=== PATIENT | male | born 1965 | race Caucasian/White ===

== ENCOUNTER 2016-10-28 03:02 | Emergency (ER) | payer BC, OTHER ==
--- NOTE | 2016-10-28 04:44 | DIAGNOSTIC IMAGING REPORT ---
PROCEDURE: XR LUMBAR SPINE 2 OR 3 VIEWS INDICATION: LOWER BACK PAIN TECHNIQUE: Three views. COMPARISON: Compared to CT abdomen and pelvis on 06/02/2015. 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 There are mild degenerative changes of the lower lumbar facet joints. The rest the osseous structures and joint spaces are normal. No evidence of an acute process or fracture. IMPRESSION: 1. Findings suggest bilateral spondylolysis defects L5 with grade 1 (3 mm) spondylolisthesis of L5 on S1. 2. Mild degenerative changes of the lumbar spine. 3. Findings discussed with Dr. Spivey.
--- NOTE | 2016-10-28 04:52 | ED CLINICAL REPORT ---
Clinical Report - Physicians/Mid Levels [facility] [address] [place] [address] 10/28/2016 3:02 Patient: KAL VERDIN Time Seen: 03:47 Oct 28 2016. Arrived- By private vehicle. Historian- patient. CPT: ER phys charges level 4 (#[id number]). HISTORY OF PRESENT ILLNESS Chief Complaint: FLANK PAIN. It is described as "pain" and it is described as located in the right flank. At its maximum, severity described as severe. When seen in the E.D., severity described as severe. Modifying factors- worsened by movement. Relieved by rest. (The patient indicates he crawled into bed and turned and heard a pop in his low back. This occurred at 1 AM this morning. Since then he's had severe pain in his right lower lumbar spine at about the L5 level. He has radicular pain around to the front.). Is still present. The patient has had nausea and vomiting. No loss of appetite. No recent travel. Similar symptoms previously: Milder. Recent medical care: Not recently seen/assessed. REVIEW OF SYSTEMS No constipation, black stools, hematemesis, difficulty with urination or pain with urination. No urinary frequency, fever, sore throat, chest pain or difficulty breathing. No cough, joint pain, skin rash or chills. The patient has had back pain. no paresthesia, paralysis, weakness ,or loss of bowel/bladder control. All systems otherwise negative, except as recorded above. PAST HISTORY Gout. Headache. Diabetes Mellitus. Hypertension. No history of peptic ulcer. No history of gallstones. Has not had urinary calculi. Medications: Insulin lantus 10 units hs. Lisinopril Oral 5 mg, at bedtime. Metformin HCl Oral 1000mg, 2x a day. Multivitamins Oral 1 pill, daily. Simvastatin Oral 20 mg, daily. TraMADol HCl Oral, , for headaches. Vicodin Oral. Aspirin 81 mg, daily. Avandia Oral 4 mg, 2x a day. Glipizide Oral 10 mg, 2x a day. Allergies: Dilaudid. SOCIAL HISTORY Never smoker. No alcohol use or drug use. ADDITIONAL NOTES The nursing notes have been reviewed. PHYSICAL EXAM Vital Signs: 10/28/2016 03:06 BP: 124/81. HR: 61. RR: 20. O2 saturation: 98%. Temp: 98 F. Pain level now: 10/10. Appearance: Alert. Appears to be in pain. Patient in moderate distress. Eyes: Eyes normal inspection. ENT: Pharynx normal. Neck: Normal inspection. CVS: Normal heart rate and rhythm. Heart sounds normal. Pulses normal. Respiratory: No respiratory distress. Breath sounds normal. Chest nontender. Abdomen: Soft and nontender. Back: (Soft tissue tenderness right , lower paraspina soft tissue. Decreased ROM due to pain.). Skin: Skin warm. Normal skin color. No rash. Extremities: Extremities exhibit normal ROM. No lower extremity edema. Neuro: Oriented X 3. No motor deficit. No sensory deficit. Reflexes normal. Reflex exam: right biceps 1+, left biceps 1+, right patellar 2+, left patellar 2+, right Achilles 0 and left Achilles 0. LABS, X-RAYS, AND EKG LS-Spine X-rays: (Pars defect with some spondylosis.). Views: AP, lateral and coned down view. Technique: good. The X-rays were independently viewed by me, interpreted by the radiologist and discussed with the radiologist. PROGRESS AND PROCEDURES Course of Care: Toradol 30 milligrams IV Ativan 1 mg IV Patient is stable. Symptoms much better. patient's pain is coming from lumbar strain and radiculopathy. He does not have a kidney stone. Patient/family counseled. Disposition: Discharged. Condition: stable and improved. CLINICAL IMPRESSION Acute lumbar strain. INSTRUCTIONS No strenuous activity. Do not work for three days until better. Drink plenty of fluids. Warnings: Further evaluation is necessary. SEDATIVE MEDICATION: You were given sedative medication during your visit. Do not drive or operate dangerous machinery. GENERAL WARNINGS: Return or contact your physician immediately if your condition worsens or changes unexpectedly, if not improving as expected, or if other problems arise. Your Current Medications: CONTINUE TAKING THE FOLLOWING MEDICATIONS: Aspirin : 81 mg daily. Avandia Oral : 4 mg 2x a day. Glipizide Oral : 10 mg 2x a day. Insulin lantus 10 units hs*. Lisinopril Oral : 5 mg at bedtime. Metformin HCl Oral : 1000mg 2x a day. Multivitamins Oral : 1 pill daily. Simvastatin Oral : 20 mg daily. TraMADol HCl Oral : for headaches. Vicodin Oral. Prescription Medications: Hydrocodone/APAP 5mg/325mg: take 1 to 2 orally every 6 hours as needed for pain. Dispense fifteen (15). No refills. Zofran (orally disintegrating tablets) 4 mg: take 1 orally every 6 hours as needed for nausea. Dispense ten (10). No refill. Substitution is permissible. Ibuprofen 600mg tablets: take 1 tablet orally every 8 hours as needed for pain. Dispense thirty (30). No refills. Flexeril 10 mg: Take 1 orally every 8 hours as needed for muscle spasm. Dispense twenty (20). No refills. Substitution is permissible. Follow-up: Follow up with your doctor in one week. Call for an appointment. Understanding of the discharge instructions verbalized by patient and family. Discharge instructions reviewed with and understanding was verbalized by supervisor payroll. (Electronically signed by Khoa Spivey MD 10/31/2016 0:11)
--- NOTE | 2016-10-28 04:52 | ED ORDER SUMMARY ---
..... Patient: KAL VERDIN OrderSheet [facility] VisitID: [id number] [place] [address] 51y, M Registration Date/Time: 10/28/2016 ORDER SHEET Weight: 113.3 kg (stated) Allergies: Dilaudid GENERAL ORDERS: Lumbar Spine 2 or 3V (when back pain better) Urgent (03:51 10/28/2016 Gisele BRAXTON) (Ack 4:08 Deboraha R.N.) (4:28 RFay) MEDICATION ORDERS: Toradol IM 60 mg (NOW) (03:51 10/28/2016 Gisele BRAXTON) (Ack 3:51 HSoule) (Cancelled: Other3:54 Gisele BRAXTON) Soma PO 350 mg (NOW) (03:51 10/28/2016 Gisele BRAXTON) (Ack 3:51 HSoule) (Cancelled: Other3:54 Gisele BRAXTON) IV FLUIDS: IV Saline Lock (03:19 10/28/2016 HSoule per protocol) (3:19 HSoule) Toradol IV 30 mg (NOW) (03:54 10/28/2016 Gisele BRAXTON) (Ack 3:55 HSoule) (4:03 HSoule) Ativan IV 1 mg (NOW) (03:54 10/28/2016 Gisele BRAXTON) (Ack 3:55 HSoule) (4:03 HSoule) ORDER SHEET NOTES: [Electronically signed by Kayce Zavala (05:08 10/28/2016)] [Electronically signed by Khoa Spivey MD (00:11 10/31/2016)] [Electronically locked/signed by Kayce Zavala (05:08 10/28/2016)]
--- NOTE | 2016-10-28 04:52 | ED ORDER SUMMARY ---
..... Patient: KAL VERDIN OrderSheet [facility] VisitID: [id number] [place] [address] 51y, M Registration Date/Time: 10/28/2016 ORDER SHEET Weight: 113.3 kg (stated) Allergies: Dilaudid GENERAL ORDERS: Lumbar Spine 2 or 3V (when back pain better) Urgent (03:51 10/28/2016 Gisele BRAXTON) (Ack 4:08 Deboraha R.N.) (4:28 RFay) MEDICATION ORDERS: Toradol IM 60 mg (NOW) (03:51 10/28/2016 Gisele BRAXTON) (Ack 3:51 HSoule) (Cancelled: Other3:54 Gisele BRAXTON) Soma PO 350 mg (NOW) (03:51 10/28/2016 Gisele BRAXTON) (Ack 3:51 HSoule) (Cancelled: Other3:54 Gisele BRAXTON) IV FLUIDS: IV Saline Lock (03:19 10/28/2016 HSoule per protocol) (3:19 HSoule) Toradol IV 30 mg (NOW) (03:54 10/28/2016 Gisele BRAXTON) (Ack 3:55 HSoule) (4:03 HSoule) Ativan IV 1 mg (NOW) (03:54 10/28/2016 Gisele BRAXTON) (Ack 3:55 HSoule) (4:03 HSoule) ORDER SHEET NOTES: [Electronically signed by Kayce Zavala (05:08 10/28/2016)] [Electronically signed by Khoa Spivey MD (00:11 10/31/2016)] [Electronically locked/signed by Kayce Zavala (05:08 10/28/2016)]
--- NOTE | 2016-10-28 04:52 | ED CLINICAL REPORT ---
Clinical Report - Physicians/Mid Levels [facility] [address] [place] [address] 10/28/2016 3:02 Patient: KAL VERDIN Time Seen: 03:47 Oct 28 2016. Arrived- By private vehicle. Historian- patient. CPT: ER phys charges level 4 (#[id number]). HISTORY OF PRESENT ILLNESS Chief Complaint: FLANK PAIN. It is described as "pain" and it is described as located in the right flank. At its maximum, severity described as severe. When seen in the E.D., severity described as severe. Modifying factors- worsened by movement. Relieved by rest. (The patient indicates he crawled into bed and turned and heard a pop in his low back. This occurred at 1 AM this morning. Since then he's had severe pain in his right lower lumbar spine at about the L5 level. He has radicular pain around to the front.). Is still present. The patient has had nausea and vomiting. No loss of appetite. No recent travel. Similar symptoms previously: Milder. Recent medical care: Not recently seen/assessed. REVIEW OF SYSTEMS No constipation, black stools, hematemesis, difficulty with urination or pain with urination. No urinary frequency, fever, sore throat, chest pain or difficulty breathing. No cough, joint pain, skin rash or chills. The patient has had back pain. no paresthesia, paralysis, weakness ,or loss of bowel/bladder control. All systems otherwise negative, except as recorded above. PAST HISTORY Gout. Headache. Diabetes Mellitus. Hypertension. No history of peptic ulcer. No history of gallstones. Has not had urinary calculi. Medications: Insulin lantus 10 units hs. Lisinopril Oral 5 mg, at bedtime. Metformin HCl Oral 1000mg, 2x a day. Multivitamins Oral 1 pill, daily. Simvastatin Oral 20 mg, daily. TraMADol HCl Oral, , for headaches. Vicodin Oral. Aspirin 81 mg, daily. Avandia Oral 4 mg, 2x a day. Glipizide Oral 10 mg, 2x a day. Allergies: Dilaudid. SOCIAL HISTORY Never smoker. No alcohol use or drug use. ADDITIONAL NOTES The nursing notes have been reviewed. PHYSICAL EXAM Vital Signs: 10/28/2016 03:06 BP: 124/81. HR: 61. RR: 20. O2 saturation: 98%. Temp: 98 F. Pain level now: 10/10. Appearance: Alert. Appears to be in pain. Patient in moderate distress. Eyes: Eyes normal inspection. ENT: Pharynx normal. Neck: Normal inspection. CVS: Normal heart rate and rhythm. Heart sounds normal. Pulses normal. Respiratory: No respiratory distress. Breath sounds normal. Chest nontender. Abdomen: Soft and nontender. Back: (Soft tissue tenderness right , lower paraspina soft tissue. Decreased ROM due to pain.). Skin: Skin warm. Normal skin color. No rash. Extremities: Extremities exhibit normal ROM. No lower extremity edema. Neuro: Oriented X 3. No motor deficit. No sensory deficit. Reflexes normal. Reflex exam: right biceps 1+, left biceps 1+, right patellar 2+, left patellar 2+, right Achilles 0 and left Achilles 0. LABS, X-RAYS, AND EKG LS-Spine X-rays: (Pars defect with some spondylosis.). Views: AP, lateral and coned down view. Technique: good. The X-rays were independently viewed by me, interpreted by the radiologist and discussed with the radiologist. PROGRESS AND PROCEDURES Course of Care: Toradol 30 milligrams IV Ativan 1 mg IV Patient is stable. Symptoms much better. patient's pain is coming from lumbar strain and radiculopathy. He does not have a kidney stone. Patient/family counseled. Disposition: Discharged. Condition: stable and improved. CLINICAL IMPRESSION Acute lumbar strain. INSTRUCTIONS No strenuous activity. Do not work for three days until better. Drink plenty of fluids. Warnings: Further evaluation is necessary. SEDATIVE MEDICATION: You were given sedative medication during your visit. Do not drive or operate dangerous machinery. GENERAL WARNINGS: Return or contact your physician immediately if your condition worsens or changes unexpectedly, if not improving as expected, or if other problems arise. Your Current Medications: CONTINUE TAKING THE FOLLOWING MEDICATIONS: Aspirin : 81 mg daily. Avandia Oral : 4 mg 2x a day. Glipizide Oral : 10 mg 2x a day. Insulin lantus 10 units hs*. Lisinopril Oral : 5 mg at bedtime. Metformin HCl Oral : 1000mg 2x a day. Multivitamins Oral : 1 pill daily. Simvastatin Oral : 20 mg daily. TraMADol HCl Oral : for headaches. Vicodin Oral. Prescription Medications: Hydrocodone/APAP 5mg/325mg: take 1 to 2 orally every 6 hours as needed for pain. Dispense fifteen (15). No refills. Zofran (orally disintegrating tablets) 4 mg: take 1 orally every 6 hours as needed for nausea. Dispense ten (10). No refill. Substitution is permissible. Ibuprofen 600mg tablets: take 1 tablet orally every 8 hours as needed for pain. Dispense thirty (30). No refills. Flexeril 10 mg: Take 1 orally every 8 hours as needed for muscle spasm. Dispense twenty (20). No refills. Substitution is permissible. Follow-up: Follow up with your doctor in one week. Call for an appointment. Understanding of the discharge instructions verbalized by patient and family. Discharge instructions reviewed with and understanding was verbalized by inspector insulation. (Electronically signed by Khoa Spivey MD 10/31/2016 0:11)
--- NOTE | 2016-10-28 04:52 | ED NURSING NOTES ---
Clinical Report - Nurses [facility] [address] [place] [address] 10/28/2016 3:02 Patient: KAL VERDIN TRIAGE Triage time 03:Oct 28 2016. Acuity: LEVEL 3. Chief Complaint: (Right flank and side pain). SEPSIS SCREEN: Sepsis Screen: negative. Negative (no infection suspected/documented). --03:10 Kayce Zavala 03:06 10/28/16. BP: 124/81. HR: 61. RR: 20. O2 saturation: 98% on room air. Temp: 98 F (oral). Pain level now: 07/09. --03:10 Kayce Zavala KITTY COMA SCORE: Kitty Coma Scale: 15- eyes open spontaneously (4); best verbal response- oriented x 4 (5); best motor response- obeys commands (6). --03:10 Kayce Zavala. Weight: 113.3 kg stated. Height/Length: 71 inches Per Patient. BMI: 34.9. --03:08 Kayce Zavala. Medications Aspirin 81 mg, daily. Avandia Oral 4 mg, 2x a day. Glipizide Oral 10 mg, 2x a day. --03:08 Kayce Zavala Insulin lantus 10 units hs. Lisinopril Oral 5 mg, at bedtime. Metformin HCl Oral 1000mg, 2x a day. Multivitamins Oral 1 pill, daily. Simvastatin Oral 20 mg, daily. TraMADol HCl Oral, , for headaches. Vicodin Oral. --03:08 Kayce Zavala. Medication/allergy information source: the patient. --03:10 Kayce Zavala. Allergies Dilaudid. --03:08 Kayce Zavala. History Arrived by private vehicle. Historian: patient. Accompanied by family. Primary physician (elbert). This started just prior to arrival. ( Patient states that he began having severe right flank and side pain. He reports vomiting. He reports a history of kidney stones.). PAST MEDICAL HX: Immunizations: up-to-date. SOCIAL HX: Never smoker. No alcohol use. No infectious disease exposure. ABUSE ASSESSMENT: No report of abuse. FALL RISK ASSESSMENT: Fall risk assessment completed. No fall risk identified. NUTRITIONAL RISK ASSESSMENT: The nutritional risk assessment revealed no deficiencies. FUNCTIONAL ASSESSMENT: Functional assessment: no impairments noted. LEARNING NEEDS ASSESSMENT: The learning needs assessment revealed no barriers. SKIN INTEGRITY ASSESSMENT: Skin integrity risk assessment completed. No skin integrity risk identified. --03:10 Kayce Zavala. PROBLEMS: Gout. Headache. Diabetes Mellitus. Hypertension. Immunizations. --03:09 Kayce Zavala. ADDITIONAL SURGERIES: Septoplasty. --03:09 Kayce Zavala. Interventions ID band on patient. To treatment room. --03:10 Kayce Zavala. PHYSICAL ASSESSMENT Ambulatory to room. GENERAL / NEURO / PSYCH: Alert. Oriented X 4. Appears in pain. HEENT: Mucous membranes are pink. RESPIRATORY: Respirations not labored. CVS: Normal sinus rhythm noted. GI / : Abdominal tenderness in the right lower quadrant. SKIN: Skin is warm and dry. --03:10 Kayce Zavala. NURSING PROGRESS NOTES Pulse oximeter and NIBP monitor placed on patient; monitor alarms on. Patient gowned. Reassurance given to the patient. Two patient identifiers checked. Call light placed in reach. Side rails up x 1. Bed placed in lowest position. Brakes of bed on. Patient ready for evaluation- chart flagged. --03:11 Kayce Zavala 03:19 10/28/2016 Site #1 started via IV in the right antecubital space with an 20g angiocath, with aseptic technique and good blood return; one attempt. Blood drawn: rainbow set. Labeled in the presence of the patient and sent to the lab. Saline lock flushed with 10 mL saline. --03:19 Kayce Zavala 03:58 10/28/2016 Toradol IVP 30 mg given over 1 minute(s) via site #1. Allergies verified and confirmed 5 rights. IV patency established. IV site checked: no pain, redness, or swelling. IV flushed thoroughly pre- and post-medication administration. IVP given by RN. --04:03 Kayce Zavala 04:03 10/28/2016 Ativan (LORazepam) IVP 1 mg given over 1 minute(s) via site #1. Allergies verified, confirmed 5 rights and sedative warning given to the patient and patient's family. IV patency established. IV site checked: no pain, redness, or swelling. IV flushed thoroughly pre- and post-medication administration. IVP given by RN. --04:03 Kayce Zavala 04:14 10/28/16. O2 saturation: 86% on room air. O2 started via nasal cannula at 2 liters/minute. Additional comments: Pt asleep, O2 dropped. Responded to 2 L NC. . --04:14 Baldo Álvarez R.N. Reassessment after medication administered. Overall patient status- he states feels better. --04:46 Kayce Zavala 04:46 10/28/16. BP: 125/62. HR: 75. RR: 17. O2 saturation: 97% on nasal cannula at 2 liters/minute. Pain level now: 0/10. --04:46 Kayce Zavala. DISPOSITION / DISCHARGE Condition at departure: stable. No learning barriers present. Discharge instructions provided and reviewed with the patient and family. Reviewed warnings (Do not drive on seditive medications). Reviewed medication(s) side effects, precautions, dosing and course information. Patient verbalized understanding. Written instructions provided in Sudanese. ( Follow up with PCP in one week. Rest, limit activity and allow body time to heal. Increase fluids.). The patient was discharged by the physician. He was discharged home and accompanied by family. He left the Emergency Department ambulatory and via private vehicle. Family member driving. --05:07 Kayce Zavala 05:05 10/28/16. BP: 125/62. HR: 76. RR: 18. O2 saturation: 98% on room air. Temp: 98.7 F (oral). Pain level now: 0/10. --05:07 Kayce Zavala 05:02 10/28/2016 Site #1 removed upon discharge. Catheter intact. Bandaid applied. --05:07 Kayce Zavala. Locked/Released at 10/28/2016 5:08 by Kayce Zavala,
--- NOTE | 2016-10-31 00:12 | ED MAR SUMMARY ---
..... Medication Administration Record Located Within [facility] [address] [place] [address] Patient: KAL VERDIN Visit ID: [id number] 51y, M Weight: 113.3 kg Height/Length: 71 in BMI: 34.9 ALLERGIES: Dilaudid Given 03:58 10/28/2016 Kayce Zavala, Medication Administered: TORADOL [IVP], Dose: 30 mg IVP over 1 minute(s), Site: #1 right AC. Medication Ordered: Toradol IV 30 mg (NOW). Given 04:03 10/28/2016 Kayce Zavala, Medication Administered: ATIVAN [IVP] (LORAZEPAM), Dose: 1 mg IVP over 1 minute(s), Site: #1 right AC. Medication Ordered: Ativan IV 1 mg (NOW).
--- NOTE | 2016-10-31 00:12 | ED DISCHARGE INSTRUCTIONS ---
Patient: KAL VERDIN General Instructions [facility] VisitID: [id number] [place] [address] 51y, M Registration Date/Time: 10/28/2016 Acute lumbar strain. INSTRUCTIONS No strenuous activity. Do not work for three days until better. Drink plenty of fluids. Warnings: Further evaluation is necessary. SEDATIVE MEDICATION: You were given sedative medication during your visit. Do not drive or operate dangerous machinery. GENERAL WARNINGS: Return or contact your physician immediately if your condition worsens or changes unexpectedly, if not improving as expected, or if other problems arise. Your Current Medications: CONTINUE TAKING THE FOLLOWING MEDICATIONS: Aspirin : 81 mg daily. Avandia Oral : 4 mg 2x a day. Glipizide Oral : 10 mg 2x a day. Insulin lantus 10 units hs*. Lisinopril Oral : 5 mg at bedtime. Metformin HCl Oral : 1000mg 2x a day. Multivitamins Oral : 1 pill daily. Simvastatin Oral : 20 mg daily. TraMADol HCl Oral : for headaches. Vicodin Oral. Prescription Medications: Hydrocodone/APAP 5mg/325mg: take 1 to 2 orally every 6 hours as needed for pain. Dispense fifteen (15). No refills. Zofran (orally disintegrating tablets) 4 mg: take 1 orally every 6 hours as needed for nausea. Dispense ten (10). No refill. Substitution is permissible. Ibuprofen 600mg tablets: take 1 tablet orally every 8 hours as needed for pain. Dispense thirty (30). No refills. Flexeril 10 mg: Take 1 orally every 8 hours as needed for muscle spasm. Dispense twenty (20). No refills. Substitution is permissible. Follow-up: Follow up with your doctor in one week. Call for an appointment. Understanding of the discharge instructions verbalized by patient and family. Discharge instructions reviewed with and understanding was verbalized by adult basic studies teacher. ADDITIONAL INFORMATION Sciatica Sciatica ("Lumbar Radiculopathy") causes a pain that spreads from the lower back down into the buttock, hip and leg. Sometimes leg pain can occur without any back pain. Sciatica is due to irritation or pressure on a spinal nerve as it comes out of the spinal canal. This is most often due to a bulge or rupture of a nearby spinal disk (the cartilage cushion between each spinal bone), which presses on a nearby nerve. Other causes include spinal stenosis (narrowing of the spinal canal) and spasm of the pyriform muscle (a muscle in the buttocks that the sciatic nerve passes through). Sciatica may begin after a sudden twisting/bending force (such as in a car accident), or sometimes after a simple awkward movement. In either case, muscle spasm is commonly present and contributes to the pain. The diagnosis of sciatica is made from the symptoms and physical exam. Unless you had a physical injury (such as a car accident or fall), X-rays are usually not ordered for the initial evaluation of sciatica because the nerves and disks cannot be seen on an x-ray. If signs of a compressed nerve are present (for example, loss of tendon reflex or strength in the leg), an MRI (magnetic resonance imaging) scan will need to be scheduled as an outpatient. Most sciatica (80-90%) gets better with medicine, exercise, physical therapy. If symptoms continue after at least three months of medical treatment, surgery may be considered. Home Care: You may need to stay in bed the first few days. But, as soon as possible, begin sitting or walking to avoid problems with prolonged bed rest. When in bed, try to find a position of comfort. A firm mattress is best. Try lying flat on your back with pillows under your knees. You can also try lying on your side with your knees bent up towards your chest and a pillow between your knees. Avoid prolonged sitting. This puts more stress on the lower back than standing or walking. Some persons find relief with heat (hot shower, hot bath or heating pad) and massage, while others prefer cold packs (crushed or cubed ice in a plastic bag, wrapped in a towel). Try both and use the method that feels best for 20 minutes several times a day. You may use acetaminophen (Tylenol) or ibuprofen (Motrin, Advil) to control pain, unless another pain medicine was prescribed. [ NOTE: If you have chronic liver or kidney disease or ever had a stomach ulcer or GI bleeding, talk with your doctor before using these medicines.] Be aware of safe lifting methods and do not lift anything over 15 pounds until all the pain is gone. Follow Up with your doctor or this facility if your symptoms do not start to improve after one week. Physical therapy or further testing may be needed. [NOTE: If X-rays were taken, they will be reviewed by a radiologist. You will be notified of any new findings that may affect your care.] Get Prompt Medical Attention if any of the following occur: Pain becomes worse, not controlled by the prescribed medicine Weakness or numbness in one or both legs Numbness in the groin, genital area Loss of bowel or bladder control Ondansetron Oral disintegrating tablet What is this medicine? ONDANSETRON (on CLAUDIA se duane) is used to treat nausea and vomiting caused by chemotherapy. It is also used to prevent or treat nausea and vomiting after surgery. How should I use this medicine? These tablets are made to dissolve in the mouth. Do not try to push the tablet through the foil backing. With dry hands, peel away the foil backing and gently remove the tablet. Place the tablet in the mouth and allow it to dissolve, then swallow. While you may take these tablets with water, it is not necessary to do so. Talk to your textile worker regarding the use of this medicine in children. Special care may be needed. What side effects may I notice from receiving this medicine? Side effects that you should report to your doctor or health day care home mother as soon as possible: allergic reactions like skin rash, itching or hives, swelling of the face, lips, or tongue breathing problems dizziness fast or irregular heartbeat feeling faint or lightheaded, falls fever and chills swelling of the hands and feet tightness in the chest Side effects that usually do not require medical attention (report to your doctor or health day care home mother if they continue or are bothersome): constipation or diarrhea headache What may interact with this medicine? Do not take this medicine with any of the following medications: -apomorphine -cisapride -dofetilide -dronedarone -pimozide -thioridazine -ziprasidone This medicine may also interact with the following medications: -carbamazepine -phenytoin -rifampicin -tramadol -other medicines that prolong the QT interval (cause an abnormal heart rhythm) What if I miss a dose? If you miss a dose, take it as soon as you can. If it is almost time for your next dose, take only that dose. Do not take double or extra doses. Where should I keep my medicine? Keep out of the reach of children. Store between 2 and 30 degrees C (36 and 86 degrees F). Throw away any unused medicine after the expiration date. What should I tell my health care provider before I take this medicine? They need to know if you have any of these conditions: heart disease history of irregular heartbeat liver disease low levels of magnesium or potassium in the blood an unusual or allergic reaction to ondansetron, granisetron, other medicines, foods, dyes, or preservatives or trying to get breast-feeding What should I watch for while using this medicine? Check with your doctor or health day care home mother as soon as you can if you have any sign of an allergic reaction. You have been given the following additional information: Back Pain W/ Sciatica Ondansetron Oral disintegrating tablet No strenuous activity. Do not work for three days until better. (Electronically signed by Khoa Spivey MD 10/31/2016 0:11)
--- NOTE | 2016-10-31 00:12 | ED DISCHARGE INSTRUCTIONS ---
Patient: KAL VERDIN General Instructions [facility] VisitID: [id number] [place] [address] 51y, M Registration Date/Time: 10/28/2016 Acute lumbar strain. INSTRUCTIONS No strenuous activity. Do not work for three days until better. Drink plenty of fluids. Warnings: Further evaluation is necessary. SEDATIVE MEDICATION: You were given sedative medication during your visit. Do not drive or operate dangerous machinery. GENERAL WARNINGS: Return or contact your physician immediately if your condition worsens or changes unexpectedly, if not improving as expected, or if other problems arise. Your Current Medications: CONTINUE TAKING THE FOLLOWING MEDICATIONS: Aspirin : 81 mg daily. Avandia Oral : 4 mg 2x a day. Glipizide Oral : 10 mg 2x a day. Insulin lantus 10 units hs*. Lisinopril Oral : 5 mg at bedtime. Metformin HCl Oral : 1000mg 2x a day. Multivitamins Oral : 1 pill daily. Simvastatin Oral : 20 mg daily. TraMADol HCl Oral : for headaches. Vicodin Oral. Prescription Medications: Hydrocodone/APAP 5mg/325mg: take 1 to 2 orally every 6 hours as needed for pain. Dispense fifteen (15). No refills. Zofran (orally disintegrating tablets) 4 mg: take 1 orally every 6 hours as needed for nausea. Dispense ten (10). No refill. Substitution is permissible. Ibuprofen 600mg tablets: take 1 tablet orally every 8 hours as needed for pain. Dispense thirty (30). No refills. Flexeril 10 mg: Take 1 orally every 8 hours as needed for muscle spasm. Dispense twenty (20). No refills. Substitution is permissible. Follow-up: Follow up with your doctor in one week. Call for an appointment. Understanding of the discharge instructions verbalized by patient and family. Discharge instructions reviewed with and understanding was verbalized by chief science officer. ADDITIONAL INFORMATION Sciatica Sciatica ("Lumbar Radiculopathy") causes a pain that spreads from the lower back down into the buttock, hip and leg. Sometimes leg pain can occur without any back pain. Sciatica is due to irritation or pressure on a spinal nerve as it comes out of the spinal canal. This is most often due to a bulge or rupture of a nearby spinal disk (the cartilage cushion between each spinal bone), which presses on a nearby nerve. Other causes include spinal stenosis (narrowing of the spinal canal) and spasm of the pyriform muscle (a muscle in the buttocks that the sciatic nerve passes through). Sciatica may begin after a sudden twisting/bending force (such as in a car accident), or sometimes after a simple awkward movement. In either case, muscle spasm is commonly present and contributes to the pain. The diagnosis of sciatica is made from the symptoms and physical exam. Unless you had a physical injury (such as a car accident or fall), X-rays are usually not ordered for the initial evaluation of sciatica because the nerves and disks cannot be seen on an x-ray. If signs of a compressed nerve are present (for example, loss of tendon reflex or strength in the leg), an MRI (magnetic resonance imaging) scan will need to be scheduled as an outpatient. Most sciatica (80-90%) gets better with medicine, exercise, physical therapy. If symptoms continue after at least three months of medical treatment, surgery may be considered. Home Care: You may need to stay in bed the first few days. But, as soon as possible, begin sitting or walking to avoid problems with prolonged bed rest. When in bed, try to find a position of comfort. A firm mattress is best. Try lying flat on your back with pillows under your knees. You can also try lying on your side with your knees bent up towards your chest and a pillow between your knees. Avoid prolonged sitting. This puts more stress on the lower back than standing or walking. Some persons find relief with heat (hot shower, hot bath or heating pad) and massage, while others prefer cold packs (crushed or cubed ice in a plastic bag, wrapped in a towel). Try both and use the method that feels best for 20 minutes several times a day. You may use acetaminophen (Tylenol) or ibuprofen (Motrin, Advil) to control pain, unless another pain medicine was prescribed. [ NOTE: If you have chronic liver or kidney disease or ever had a stomach ulcer or GI bleeding, talk with your doctor before using these medicines.] Be aware of safe lifting methods and do not lift anything over 15 pounds until all the pain is gone. Follow Up with your doctor or this facility if your symptoms do not start to improve after one week. Physical therapy or further testing may be needed. [NOTE: If X-rays were taken, they will be reviewed by a radiologist. You will be notified of any new findings that may affect your care.] Get Prompt Medical Attention if any of the following occur: Pain becomes worse, not controlled by the prescribed medicine Weakness or numbness in one or both legs Numbness in the groin, genital area Loss of bowel or bladder control Ondansetron Oral disintegrating tablet What is this medicine? ONDANSETRON (on CLAUDIA se udane) is used to treat nausea and vomiting caused by chemotherapy. It is also used to prevent or treat nausea and vomiting after surgery. How should I use this medicine? These tablets are made to dissolve in the mouth. Do not try to push the tablet through the foil backing. With dry hands, peel away the foil backing and gently remove the tablet. Place the tablet in the mouth and allow it to dissolve, then swallow. While you may take these tablets with water, it is not necessary to do so. Talk to your salesperson floor coverings regarding the use of this medicine in children. Special care may be needed. What side effects may I notice from receiving this medicine? Side effects that you should report to your doctor or health palliative care nurse as soon as possible: allergic reactions like skin rash, itching or hives, swelling of the face, lips, or tongue breathing problems dizziness fast or irregular heartbeat feeling faint or lightheaded, falls fever and chills swelling of the hands and feet tightness in the chest Side effects that usually do not require medical attention (report to your doctor or health palliative care nurse if they continue or are bothersome): constipation or diarrhea headache What may interact with this medicine? Do not take this medicine with any of the following medications: -apomorphine -cisapride -dofetilide -dronedarone -pimozide -thioridazine -ziprasidone This medicine may also interact with the following medications: -carbamazepine -phenytoin -rifampicin -tramadol -other medicines that prolong the QT interval (cause an abnormal heart rhythm) What if I miss a dose? If you miss a dose, take it as soon as you can. If it is almost time for your next dose, take only that dose. Do not take double or extra doses. Where should I keep my medicine? Keep out of the reach of children. Store between 2 and 30 degrees C (36 and 86 degrees F). Throw away any unused medicine after the expiration date. What should I tell my health care provider before I take this medicine? They need to know if you have any of these conditions: heart disease history of irregular heartbeat liver disease low levels of magnesium or potassium in the blood an unusual or allergic reaction to ondansetron, granisetron, other medicines, foods, dyes, or preservatives or trying to get breast-feeding What should I watch for while using this medicine? Check with your doctor or health palliative care nurse as soon as you can if you have any sign of an allergic reaction. You have been given the following additional information: Back Pain W/ Sciatica Ondansetron Oral disintegrating tablet No strenuous activity. Do not work for three days until better. (Electronically signed by Khoa Spivey MD 10/31/2016 0:11)
--- NOTE | 2016-10-31 00:12 | ED MAR SUMMARY ---
..... Medication Administration [facility] [address] [place] [address] Patient: KAL VERDIN Visit ID: [id number] 51y, M Weight: 113.3 kg Height/Length: 71 in BMI: 34.9 ALLERGIES: Dilaudid Given 03:58 10/28/2016 Kayce Zavala, Medication Administered: TORADOL [IVP], Dose: 30 mg IVP over 1 minute(s), Site: #1 right AC. Medication Ordered: Toradol IV 30 mg (NOW). Given 04:03 10/28/2016 Kayce Zavala, Medication Administered: ATIVAN [IVP] (LORAZEPAM), Dose: 1 mg IVP over 1 minute(s), Site: #1 right AC. Medication Ordered: Ativan IV 1 mg (NOW).
--- NOTE | 2016-10-31 00:12 | ED MED RECONCILIATION SUMMARY ---
Patient: KAL VERDIN Medication Reconciliation Report [facility] VisitID: [id number] [address] [place] [address] 51y, M Registration Date/Time: 10/28/2016 Weight: 113.3 kg Height/Length: 71 in. BMI: 34.9 ALLERGIES: Dilaudid The patient's Home Medications are listed below: CONTINUE TAKING THE FOLLOWING MEDICATIONS: Aspirin 81 mg, daily Avandia Oral 4 mg, 2x a day Glipizide Oral 10 mg, 2x a day Insulin lantus 10 units hs Lisinopril Oral 5 mg, at bedtime Metformin HCl Oral 1000mg, 2x a day Multivitamins Oral 1 pill, daily Simvastatin Oral 20 mg, daily TraMADol HCl Oral, for headaches Vicodin Oral The source(s) of the original Home Medication information: patient The following Medications were given to the patient in the Emergency Department: Toradol [IVP] IVP 30 mg, administered: 10/28/2016 3:58:00 AM Ativan [IVP] IVP 1 mg, administered: 10/28/2016 4:03:00 AM The following Medications were prescribed to the patient: Hydrocodone/APAP 5mg/325mg: take 1 to 2 orally every 6 hours as needed for pain. Dispense fifteen (15). No refills. -- Khoa Spivey MD Zofran (orally disintegrating tablets) 4 mg: take 1 orally every 6 hours as needed for nausea. Dispense ten (10). No refill. Substitution is permissible. -- Khoa Spivey MD Ibuprofen 600mg tablets: take 1 tablet orally every 8 hours as needed for pain. Dispense thirty (30). No refills. -- Khoa Spivey MD Flexeril 10 mg: Take 1 orally every 8 hours as needed for muscle spasm. Dispense twenty (20). No refills. Substitution is permissible. -- Khoa Spivey MD
--- NOTE | 2016-10-31 00:12 | ED MED RECONCILIATION SUMMARY ---
Patient: KAL VERDIN Medication Reconciliation Report [facility] VisitID: [id number] [address] [place] [address] 51y, M Registration Date/Time: 10/28/2016 Weight: 113.3 kg Height/Length: 71 in. BMI: 34.9 ALLERGIES: Dilaudid The patient's Home Medications are listed below: CONTINUE TAKING THE FOLLOWING MEDICATIONS: Aspirin 81 mg, daily Avandia Oral 4 mg, 2x a day Glipizide Oral 10 mg, 2x a day Insulin lantus 10 units hs Lisinopril Oral 5 mg, at bedtime Metformin HCl Oral 1000mg, 2x a day Multivitamins Oral 1 pill, daily Simvastatin Oral 20 mg, daily TraMADol HCl Oral, for headaches Vicodin Oral The source(s) of the original Home Medication information: patient The following Medications were given to the patient in the Emergency Department: Toradol [IVP] IVP 30 mg, administered: 10/28/2016 3:58:00 AM Ativan [IVP] IVP 1 mg, administered: 10/28/2016 4:03:00 AM The following Medications were prescribed to the patient: Hydrocodone/APAP 5mg/325mg: take 1 to 2 orally every 6 hours as needed for pain. Dispense fifteen (15). No refills. -- Khoa Spivey MD Zofran (orally disintegrating tablets) 4 mg: take 1 orally every 6 hours as needed for nausea. Dispense ten (10). No refill. Substitution is permissible. -- Khoa Spivey MD Ibuprofen 600mg tablets: take 1 tablet orally every 8 hours as needed for pain. Dispense thirty (30). No refills. -- Khoa Spivey MD Flexeril 10 mg: Take 1 orally every 8 hours as needed for muscle spasm. Dispense twenty (20). No refills. Substitution is permissible. -- Khoa Spivey MD
== END 2016-10-28 05:07 | disposition home or self-care (01) ==
LOC: ED SRH 03:02
DX: S39.012A Strain of muscle, fascia and tendon of lower back, initial encounter (principal); X50.9XXA Other and unspecified overexertion or strenuous movements or postures, initial encounter; Y93.9 Activity, unspecified; Y92.9 Unspecified place or not applicable; Y99.9 Unspecified external cause status; R11.2 Nausea with vomiting, unspecified; E11.9 Type 2 diabetes mellitus without complications; I10 Essential (primary) hypertension; Z79.4 Long term (current) use of insulin; Z79.82 Long term (current) use of aspirin